=== PATIENT | female | born 1970 | race Caucasian/White ===

== ENCOUNTER 2016-04-03 10:48 | Emergency (ER) | payer SELFPAY ==
[~2016-04-03] VITALS: Ht 154.9 cm; Wt 55.3 kg
[2016-04-03 10:56] VITALS: BP 112/79
[2016-04-03] MEDS ORDERED: NEOMYCIN-BACITRACIN-POLYM UNITDOSE PKG TOP OINT TOP ONE (12:15)
[2016-04-03] MEDS ORDERED: KETOROLAC TROMETH 60MG/2ML VIAL IM ONE (13:15)
== END 2016-04-03 14:34 | disposition home or self-care (01) ==
LOC: EDBD 10:51 → ER 10:51
DX: G89.29 Other chronic pain (principal); M54.5 Low back pain; S22.089K Unspecified fracture of T11-T12 vertebra, subsequent encounter for fracture with nonunion; Z88.6 Allergy status to analgesic agent; F41.9 Anxiety disorder, unspecified
CPT/HCPCS: 72100; 96372; 99284; J1885